=== PATIENT | female | born 1980 | race Caucasian/White ===

== ENCOUNTER 2024-02-18 09:46 | Day surgery (SDC) | payer MEDICARE, MEDICAID ==
[~2024-02-18 09:46] MED LIST: Sodium Chloride 0.9% 10 ML Syringe FLUSH PRN; Sodium Chloride 0.9% 10 ML Syringe FLUSH SCH
[2024-02-18] MEDS: Lactated Ringers 1,000 ML IV SCH (10:17)
[2024-02-18] MEDS ORDERED: Ondansetron 4 MG/2 ML SDV IVPUSH PRN (10:22)
[2024-02-18] MEDS ORDERED: Propofol 200 MG/20 ML SDV ONE ×2 (10:32→10:59)
[2024-02-18 12:18] VITALS: BP 110/74; PULSE 64
== END 2024-02-18 12:10 | disposition home or self-care (01) ==
LOC: JD.SDS 09:46
PROVIDERS: ATTEND Student in an Organized Health Care Education/Training Program
DX: K64.8 Other hemorrhoids (principal); K64.4 Residual hemorrhoidal skin tags; K21.9 Gastro-esophageal reflux disease without esophagitis; E78.00 Pure hypercholesterolemia, unspecified; Z87.891 Personal history of nicotine dependence; Z79.899 Other long term (current) drug therapy; Z88.8 Allergy status to other drugs, medicaments and biological substances
CPT/HCPCS: 45378; J2704; J7120

== ENCOUNTER 2024-09-12 12:00 | Emergency (ER) | payer MEDICARE, MEDICAID ==
[2024-09-12 13:23] LABS: BASOPHILS PERCENT AUTO 0.5 % (0.0-1.0); EOSINOPHILS ABSOLUTE AUTO 0.1 K/mm3 (0.0-0.4); EOSINOPHILS PERCENT AUTO 0.8 % (0.0-6.0); HEMATOCRIT 44.4 % (37.0-47.0); HEMOGLOBIN 14.3 gm/dl (12.0-16.0); IMMATURE GRAN ABSOLUTE AUTO 0.02 K/mm3 (0.00-0.05); IMMATURE GRAN PERCENT AUTO 0.3 % (0.0-0.4); LYMPHOCYTES ABSOLUTE AUTO 1.1 K/mm3 (1.0-4.8); LYMPHOCYTES PERCENT AUTO 17.1 % (24.0-44.0); MEAN CORPUSCULAR HEMOGLOBIN 28.4 pg (28.0-32.0); MEAN CORPUSCULAR HGB CONC 32.2 g/dl (32.0-36.0); MEAN CORPUSCULAR VOLUME 88.1 fl (83.0-99.0); MONOCYTES ABSOLUTE AUTO 0.4 K/mm3 (0.0-0.8); MONOCYTES PERCENT AUTO 5.8 % (0.0-8.0); NEUTROPHILS ABSOLUTE AUTO 4.8 K/mm3 (1.8-7.7); NEUTROPHILS PERCENT AUTO 75.5 % (41.0-71.0); PLATELET COUNT,PLT 307 K/mm3 (150-400); RED BLOOD CELL COUNT 5.04 M/mm3 (4.10-5.30); WHITE BLOOD CELL COUNT,WBC 6.33 K/mm3 (3.9-11.3)
[2024-09-12] MEDS: diphenhydrAMINE 50 MG/ML SDV IVPUSH ONE (13:23)
[2024-09-12] MEDS: Sodium Chloride 0.9% 1,000 ML IV SCH (13:23)
[2024-09-12] MEDS: Metoclopramide 10 MG/2 ML SDV IVPUSH ONE (13:24)
[2024-09-12] MEDS: cefTRIAXone 2 GM in Sodium Chloride 0.9% 100 ML IV ONE (13:25)
[2024-09-12 13:41] LABS: CORONAVIRUS COVID-19 NAA POSITIVE (NEGATIVE); INFLUENZA A NAA NEGATIVE (NEGATIVE); RESPIRATORY SYNCYTIAL VIR NAA NEGATIVE (NEGATIVE)
[2024-09-12 13:58] LABS: A/G RATIO 0.9 (1-2); ALBUMIN 3.6 g/dl (3.4-5.0); ANION GAP 12.3 (5-15); BILIRUBIN TOTAL 0.3 mg/dL (0.2-1.0); BUN/CREATININE RATIO 17.1 (14-18); CALCIUM 9.5 mg/dL (8.5-10.1); CREATININE 0.7 mg/dL (0.55-1.02); EST CRCL DRUG DOSING (CG) 79.42 mL/min; POTASSIUM,K 3.3 mEq/L (3.5-5.1); PROTEIN TOTAL,TP 7.7 g/dl (6.4-8.2)
[2024-09-12] MEDS: Ketorolac 30 MG/ML SDV IVPUSH ONE (14:54)
[2024-09-12 15:01] VITALS: BP 113/66; PULSE 79
== END 2024-09-12 15:01 | disposition home or self-care (01) ==
LOC: JD.ED 12:00
DX: U07.1 COVID-19 (principal); G43.909 Migraine, unspecified, not intractable, without status migrainosus; H65.191 Other acute nonsuppurative otitis media, right ear; Z88.8 Allergy status to other drugs, medicaments and biological substances; Z79.899 Other long term (current) drug therapy
CPT/HCPCS: 0241U; 36415; 70450; 80053; 85025; 87651; 96361; 96365; 96375; 99284; J0696; J1200; J1885; J2765; J3490; J7030

== ENCOUNTER 2025-01-18 07:15 | Day surgery (SDC) | payer MEDICARE, MEDICAID ==
[2025-01-18] MEDS: Lactated Ringers 1,000 ML IV SCH (07:30)
[2025-01-18] MEDS ORDERED: Lidocaine 1% 5 ML VIAL ONE (08:59)
[2025-01-18] MEDS ORDERED: dexmedeTOMIDine HCl 200 MCG/2 ML SDV ONE (08:59)
[2025-01-18] MEDS ORDERED: Propofol 200 MG/20 ML SDV ONE ×2 (09:00→09:24)
[2025-01-18] MEDS ORDERED: Ondansetron 4 MG/2 ML SDV ONE (09:15)
[2025-01-18] MEDS ORDERED: fentaNYL 100 MCG/2 ML SDV ONE (09:24)
[2025-01-18] MEDS ORDERED: ceFAZolin 2 GM Vial ONE (09:31)
[2025-01-18] MEDS: Lidocaine 1% 10 ML MDV ONE (09:38)
[2025-01-18] MEDS ORDERED: Dexamethasone 4 MG/ML 5 ML MDV ONE (09:38)
[2025-01-18] MEDS: Bupivacaine 0.25% 10 ML SDV ONE (09:38)
[2025-01-18 10:57] VITALS: BP 127/89; PULSE 67
== END 2025-01-18 11:03 | disposition home or self-care (01) ==
LOC: JD.SDS 07:15
PROVIDERS: ATTEND Orthopaedic Surgery
DX: M85.671 Other cyst of bone, right ankle and foot (principal); E66.9 Obesity, unspecified; Z88.8 Allergy status to other drugs, medicaments and biological substances; Z68.34 Body mass index [BMI] 34.0-34.9, adult; Z86.16 Personal history of COVID-19; Z79.899 Other long term (current) drug therapy
CPT/HCPCS: 28092; J0665; J0690; J1100; J2003; J2405; J2704; J3010; J7120; 00400